=== PATIENT | male | born 1985 | race Caucasian/White ===

== ENCOUNTER 2023-06-25 12:26 | Emergency (ER) | payer BC, SELFPAY ==
[2023-06-25 12:50] VITALS: BP 169/87; PULSE 72; RESP 18; TEMP 36.9; O2SAT 97; BMI 34.9
--- NOTE | 2023-06-25 12:55 | EXP.UTC ---
Discharge Plan Disposition Patient Disposition: Home, Self-Care Condition: Good Prescriptions Prescriptions: New amoxicillin 875 mg tablet 875 mg PO Q12H Qty: 20 0RF prednisone 10 mg tablet 10 mg PO BID 3 Days Qty: 6 0RF No Action sulfasalazine 500 mg tablet 500 mg PO QID clobetasol 0.05 % cream See Rx Instructions .ROUTE .COMPLEX Rx Instructions: see rx triamcinolone acetonide 0.1 % cream See Rx Instructions .ROUTE .COMPLEX Rx Instructions: see rx etodolac 400 mg tablet 400 mg PO BID buprenorphine-naloxone 8-2 mg film See Rx Instructions .ROUTE .COMPLEX Rx Instructions: see rx Humira(CF) Pen 40 mg/0.4 mL pen injector kit See Rx Instructions .ROUTE .COMPLEX Rx Instructions: see rx Qulipta 60 mg tablet 60 mg PO DAILY Activity Restrictions/Add. Instructions Additional Instructions/Restrictions: Drink plenty of fluids. Take tylenol or ibuprofen for pain or fever. Take the medications as directed. Follow up with your regular doctor. GO TO THE ER FOR ANY WORSENING SYMPTOMS Clinical Impressions Clinical Impression: Pharyngitis Stand Alone Forms Stand Alone Forms: Work/School Release Instructions Patient Instructions: Sore Throat, DI for Pharyngitis/Tonsillopharyngitis -- Adult, Prednisone, Amoxicillin Discharge ED Provider: Frank Watkins [facility] General Stated complaint: sore throat Time Seen by Provider: 06/25/23 12:49 History of Present Illness Provider Complaint: He states that for the past 2 days he has had sore throat. He has had chills but no documented fever. His was diagnosed with strep throat yesterday. Related Data Home Medications Medication Instructions Recorded Confirmed adalimumab 40 mg/0.4 mL See Rx Instructions .Route .COMPLEX 06/25/23 06/25/23 subcutaneous pen kit (Humira(CF) Pen) atogepant 60 mg tablet (Qulipta) 60 mg PO DAILY 06/25/23 06/25/23 buprenorphine 8 mg-naloxone 2 mg See Rx Instructions .Route .COMPLEX 06/25/23 06/25/23 sublingual film clobetasol 0.05 % topical cream See Rx Instructions .Route .COMPLEX 06/25/23 06/25/23 etodolac 400 mg tablet 400 mg PO BID 06/25/23 06/25/23 sulfasalazine 500 mg tablet 500 mg PO QID 06/25/23 06/25/23 triamcinolone acetonide 0.1 % See Rx Instructions .Route .COMPLEX 06/25/23 06/25/23 topical cream Previous Rx's Medication Instructions Recorded amoxicillin 875 mg tablet 875 mg PO Q12H #20 tabs 06/25/23 prednisone 10 mg tablet 10 mg PO BID 3 days #6 tabs 06/25/23 Allergies Allergy/AdvReac Type Severity Reaction Status Date / Time No Known Allergies Allergy Verified 06/25/23 12:59 [facility] Disclaimer: The information contained in this section may have been updated after the patient was seen, as this information can be updated by other users. Social History Smoking Status: Never smoker alcohol intake: never current occupational status: employed Travel in the last 8 weeks: None ROS Obtained: Yes All systems reviewed & no additional complaints except as documented Constitutional Constitutional: Reports chills and Reports fever(s) Eyes Eyes: Denies eye discharge ENT Ears, Nose, Mouth, and Throat: Reports as per HPI Cardiovascular Cardiovascular: Denies chest pain Respiratory Respiratory: Denies chest congestion and Reports cough Gastrointestinal Gastrointestingal: Reports nausea; Denies abdominal pain, constipation, cramping, diarrhea or vomiting Musculoskeletal Musculoskeletal: Denies arthralgias Integumentary/Breasts Skin/Breast: Denies rash Neurologic Neurologic: Denies paresthesias Physical Exam General General appearance: alert and in no apparent distress Head Head exam: atraumatic, normocephalic and normal inspection Eye Eye exam: Present normal appearance, PERRL and EOMI ENT ENT exam: Present mucous membranes moist and normal external ear exam Expanded ENT Exam TM/Canal exam: Bilateral TM: erythema and bulging Nose exam: Absent sinus tenderness Mouth exam: Present normal external inspection; Absent drooling Teeth exam: Present normal inspection Throat exam: Present tonsillar erythema, tonsillomegaly and tonsillar exudate Neck Neck exam: Present normal inspection, full ROM and trachea midline; Absent tenderness, meningismus or lymphadenopathy Chest Chest inspection: Present normal inspection and symmetric chest wall rise; Absent tenderness Respiratory Respiratory exam: Present normal lung sounds bilaterally; Absent respiratory distress, wheezes, stridor or accessory muscle use Cardiovascular Cardiovascular exam: Present regular rate and normal rhythm; Absent systolic murmur or diastolic murmur Abdominal Exam Abdominal exam: Present soft and normal bowel sounds; Absent distention, tenderness, guarding, rebound or rigidity Extremities Exam Extremities exam: Present normal inspection and normal capillary refill; Absent calf tenderness Back Exam Back exam: Present normal inspection and full ROM; Absent tenderness, CVA tenderness (R) or CVA tenderness (L) Neurological Exam Neurological exam: Present alert, oriented X3 and CN II-XII intact Psychiatric Psychiatric exam: Present normal affect and normal mood Skin Skin exam: Present warm, dry, intact and normal color Medical Decision Making Medical Records Medical records reviewed: No I reviewed the patient's medical records. [place] Inquiry Pt receiving controlled substance: No Lab Data Lab results reviewed: Yes I reviewed the patient's lab results.
[2023-06-25 13:05] LABS: UTC Strep Screen (Rapid) Negative (Negative)
[2023-06-25 13:30] VITALS: BP 169/87; PULSE 72; RESP 18; TEMP 36.9; O2SAT 97
== END 2023-06-25 13:30 | disposition home or self-care (01) ==
PROVIDERS: Emergency Provider Nurse Practitioner Family
DX: J02.9 Acute pharyngitis, unspecified (principal); R68.83 Chills (without fever); Z20.818 Contact with and (suspected) exposure to other bacterial communicable diseases
CPT/HCPCS: 87880; 99204; 99212; G0463